=== PATIENT | female | born 1950 | race Caucasian/White ===

== ENCOUNTER 2016-07-09 08:02 | Inpatient (IN) | payer MEDICARE, BC ==
[~2016-07-09] VITALS: Ht 161.3 cm; Wt 89.9 kg
[~2016-07-09 08:02] MED LIST: ASPI-498 PO; BLAC20TA PO; CLOB15CR19 TP; CYCL-259 PO; GABA300C10 PO; HYDR-3138 PO; LEVO125T5 PO; MELO-190 PO; METO25TA35 PO; OMEP-110 PO; OXYC5TAB3 PO; ROPI2TAB6 PO; ROPIvacaine/PF 0.5%, 30 ML ONE; SIMV20TA3 PO; TRAM50TA2 PO; TRIA1TAB3 PO
[2016-07-09] MEDS ORDERED: VANCOMYCIN PER PHARMACY MC STA (13:27)
[2016-07-09] MEDS ORDERED: MIDAZOLAM 1 MG/ML, 2ML ONE (13:34)
[2016-07-09] MEDS ORDERED: FENTANYL PF 100 MCG/2ML ONE (13:35)
[2016-07-09] MEDS ORDERED: LACTATED RINGERS 1,000 ML IV SCH (13:36)
[2016-07-09] MEDS ORDERED: LIDOCAINE 1%, 2ML ONE (13:43)
[2016-07-09] MEDS ORDERED: ALBUTEROL SULFATE 2.5 MG/3 ML NPPB PRN (14:00)
[2016-07-09] MEDS ORDERED: OXYcodone 5 MG/5 ML ORAL.SOL UDC PO PRN (14:00)
[2016-07-09] MEDS ORDERED: VANCOMYCIN 1,700 MG in SODIUM CHLORIDE 0.9% 250 ML IV ONE (14:00)
[2016-07-09] MEDS ORDERED: LABETALOL 5MG/ML, 20ML IV PRN (14:00)
[2016-07-09] MEDS ORDERED: LIDOCAINE 1%, 2ML SQ PRN (14:00)
[2016-07-09] MEDS ORDERED: FENTANYL PF 100 MCG/2ML IV PRN (14:00)
[2016-07-09] MEDS ORDERED: PROMETHAZINE 25 MG/ML, 1ML IV PRN (14:00)
[2016-07-09] MEDS ORDERED: METOPROLOL 1 MG/ML, 5ML IV PRN (14:00)
[2016-07-09] MEDS ORDERED: ACETAMINOPHEN 325 MG TABLET PO PRN (14:00)
[2016-07-09] MEDS ORDERED: hydrALAzine 20 MG/ML, 1ML IV PRN (14:00)
[2016-07-09] MEDS ORDERED: ONDANSETRON 2MG/ML, 2ML IVPush PRN (14:00)
[2016-07-09] MEDS ORDERED: EPHEDRINE 50 MG/ML, 1ML IVPush PRN (14:00)
[2016-07-09] MEDS ORDERED: TRANEXAMIC ACID 100 MG/ML, 10ML ONE (14:12)
[2016-07-09] MEDS ORDERED: SCOPOLAMINE PATCH, 1.5MG PATCH.TD72 TD ONE ×2 (14:53→15:00)
[2016-07-09] MEDS ORDERED: HYDROmorphone 1 MG/ML, 1ML IV PRN (15:00)
[2016-07-09] MEDS ORDERED: SENNA/DOCUSATE TABLET PO PRN (15:00)
[2016-07-09] MEDS ORDERED: BISACODYL 10 MG SUPP PR PRN (15:00)
[2016-07-09] MEDS ORDERED: MAGNESIUM HYDROXIDE 8%, 30ML UDC PO PRN (15:00)
[2016-07-09] MEDS ORDERED: ONDANSETRON 2MG/ML, 2ML IV PRN (15:00)
[2016-07-09] MEDS ORDERED: OXYcodone IR 5MG TABLET PO PRN (15:00)
[2016-07-09] MEDS ORDERED: ONDANSETRON 4 MG TABLET PO PRN (15:00)
[2016-07-09] MEDS ORDERED: DEXAMETHASONE 4 MG/ML, 1ML ONE (15:13)
[2016-07-09] MEDS ORDERED: PROPOFOL 10 MG/ML, 20ML ONE (15:13)
[2016-07-09] MEDS ORDERED: CEFAZOLIN 1,000 MG ONE (15:13)
[2016-07-09] MEDS ORDERED: METOPROLOL 1 MG/ML, 5ML ONE (15:13)
[2016-07-09] MEDS ORDERED: ONDANSETRON 2MG/ML, 2ML ONE (15:13)
[2016-07-09] MEDS ORDERED: GLYCOPYRROLATE 0.2MG/1ML ONE (15:13)
[2016-07-09] MEDS ORDERED: NEOSTIGMINE 1 MG/ML, 10ML ONE (15:13)
[2016-07-09] MEDS ORDERED: ROCURONIUM 10 MG/ML ONE (15:13)
[2016-07-09] MEDS ORDERED: BUPIVACAINE/PF-EPI 0.25% 1:200K ONE (15:21)
[2016-07-09] MEDS ORDERED: methylPREDNISolone *ACETATE* 40 MG/ML ONE (15:21)
[2016-07-09] MEDS ORDERED: methylPREDNISolone SOD SUCC 40 MG/ML IM ONE (15:34)
[2016-07-09] MEDS ORDERED: BUPIVACAINE/PF-EPI 0.25% 1:200K IM ONE (16:02)
[2016-07-09] MEDS ORDERED: HYDROmorphone 2 MG/ML, 1ML ONE (16:49)
[2016-07-09] MEDS ORDERED: ACETAMINOPHEN 650 MG/20.3 ML UDC ONE (16:49)
[2016-07-09] MEDS ORDERED: OXYcodone 5 MG/5 ML ORAL.SOL UDC ONE (16:49)
[2016-07-09] MEDS ORDERED: ACETAMINOPHEN 325 MG TABLET ONE (16:49)
[2016-07-09] MEDS: HYDROmorphone 1 MG/ML, 1ML IV PRN ×3 (16:55→17:12)
[2016-07-09] MEDS: OXYcodone IR 5MG TABLET PO SCH ×2 (19:00→20:52)
[2016-07-09] MEDS: D5%-0.45% NACL 1,000 ML IV SCH (20:51)
[2016-07-09] MEDS: DOCUSATE 100 MG CAPSULE PO SCH (20:52)
[2016-07-09] MEDS ORDERED: CYCLOBENZAPRINE 10 MG TABLET PO SCH (21:00)
[2016-07-09] MEDS ORDERED: ROPINIROLE 1MG TABLET PO SCH (21:00)
[2016-07-09] MEDS ORDERED: SIMVASTATIN 20 MG TABLET PO SCH (21:00)
[2016-07-09] MEDS ORDERED: GABAPENTIN 300 MG CAPSULE PO SCH (21:00)
[2016-07-10] MEDS: D5%-0.45% NACL 1,000 ML IV SCH ×2 (00:55→10:55)
[2016-07-10] MEDS: CEFAZOLIN PMX 2GM/100ML 100 ML IVPB SCH ×2 (01:05→10:56)
[2016-07-10] MEDS: OXYcodone IR 5MG TABLET PO SCH ×4 (01:06→13:02)
[2016-07-10 04:00] VITALS: BP 109/71
[2016-07-10 06:45] VITALS: BP 112/71
[2016-07-10] MEDS: DOCUSATE 100 MG CAPSULE PO SCH (07:34)
[2016-07-10] MEDS ORDERED: TRIAMTERENE-HCTZ 37.5/25 MG TABLET PO SCH (09:00)
[2016-07-10] MEDS ORDERED: METOPROLOL TARTRATE 25 MG TABLET PO SCH (09:00)
[2016-07-10] MEDS ORDERED: LEVOTHYROXINE 125 MCG TABLET PO SCH (09:00)
[2016-07-10] MEDS ORDERED: OMEPRAZOLE 20 MG CAPSULE.DR PO SCH (09:00)
[2016-07-10] MEDS ORDERED: KETOROLAC 30 MG/1 ML ONE (10:54)
[2016-07-10 13:19] VITALS: BP 112/70
[2016-07-10] MEDS ORDERED: KETOROLAC 30 MG/1 ML IV SCH (15:00)
[2016-07-10] MEDS ORDERED: ASPIRIN 325 MG TABLET EC PO SCH (18:00)
[2016-07-12] MEDS ORDERED: MELOXICAM 15 MG TABLET PO SCH (09:00)
== END 2016-07-10 15:30 | disposition home or self-care (01) | DRG 465 ==
LOC: ORIP 12:56 → 4NOR 18:00 → DCLOUNGE 07-10 15:17
PROVIDERS: ADMIT Orthopaedic Surgery; ATTEND Orthopaedic Surgery
PROC: 0SPC09Z Removal of Liner from Right Knee Joint, Open Approach (ICD-10-PCS; 2016-07-09)
PROC: 0SBC0ZZ Excision of Right Knee Joint, Open Approach (ICD-10-PCS; 2016-07-09)
PROC: 0LNQ0ZZ Release Right Knee Tendon, Open Approach (ICD-10-PCS; 2016-07-09)
PROC: 3E0U33Z Introduction of Anti-inflammatory into Joints, Percutaneous Approach (ICD-10-PCS; 2016-07-09)
PROC: 0SUC09C Supplement Right Knee Joint with Liner, Patellar Surface, Open Approach (ICD-10-PCS; principal; 2016-07-09 17:00)
DX: T84.84XA Pain due to internal orthopedic prosthetic devices, implants and grafts, initial encounter (principal); L90.5 Scar conditions and fibrosis of skin; Y83.1 Surgical operation with implant of artificial internal device as the cause of abnormal reaction of the patient, or of later complication, without mention of misadventure at the time of the procedure; M94.261 Chondromalacia, right knee; M65.88 Other synovitis and tenosynovitis, other site; Z88.5 Allergy status to narcotic agent; Z87.891 Personal history of nicotine dependence
CPT/HCPCS: C1713; J0690; J1100; J1170; J1885; J2250; J2405; J2704; J2710; J2795; J3010; J3370; J3490; C1776; J1030; J2920; J7050; J7120